=== PATIENT | female | born 2000 | race Caucasian/White ===

== ENCOUNTER 2019-03-22 20:57 | Emergency (ER) | payer BC, OTHER ==
[~2019-03-22] VITALS: Ht 157.5 cm; Wt 77.6 kg
[2019-03-22 21:00] VITALS: Ht 157.5 cm; Wt 77.6 kg
[2019-03-23] MEDS ORDERED: KETOROLAC 30 MG INJ IM STA (00:16)
[2019-03-23] MEDS ORDERED: KETO5DRO71 OP (00:35)
[2019-03-23] MEDS ORDERED: ACET325T33 PO (00:35)
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
[2019-03-23 01:30] VITALS: BP 144/75; PULSE 82; RESP 18
== END 2019-03-23 01:42 | disposition home or self-care (01) ==
LOC: FTE 20:57
DX: H11.33 Conjunctival hemorrhage, bilateral (principal)
CPT/HCPCS: 81025; 96372; J1885; Z7502